=== PATIENT | female | born 1965 ===

== ENCOUNTER 2017-06-06 17:42 | Emergency (ER) | payer BC ==
[2017-06-06 18:02] VITALS: BP 118/77
[2017-06-06] MEDS ORDERED: Benzonatate CAP* 100 MG PO ONE (18:13)
--- NOTE | 2017-06-06 18:20 | UC ---
Respiratory Complaint HPI - HPI Summary HPI Summary: 51 year old female with no significant pmhx here for cough and fever. Patient was recently diagnosed with influenza about 10 days ago. She was given tamiflu for 7 days which she completed. Today, she is here for persistent cough, productive with dark yellow sputum. Reports intermittent fever but no n/v/d/ or any other complaints. Feels chest and nose congestion but no chest pain. Active smoker. - History of Current Complaint Chief Complaint: UCRespiratory Stated Complaint: COUGH,SORE THROAT Time Seen by Provider: 06/06/17 18:02 Onset/Duration: Gradual Onset Severity Initially: Mild Severity Currently: Mild Pain Intensity: 0 Character: Cough: Productive Aggravating Factors: Nothing Alleviating Factors: Nothing Associated Signs And Symptoms: Positive: Nasal Congestion, Hoarseness. Negative : Dyspnea, Pleuritic Chest Pain, Wheezing, Calf Pain - Allergies/Home Medications Allergies/Adverse Reactions: Allergies Allergy/AdvReac Type Severity Reaction Status Date / Time Sulfa (Sulfonamide Allergy Severe Rash Verified 06/06/17 17:54 Antibiotics) PMH/Surg Hx/FS Hx/Imm Hx Previously Healthy: Yes - Surgical History Surgical History: Yes Surgery Procedure, Year, and Place: tubal ligation, back surgery 1999 - Family History Known Family History: Positive: None - Social History Alcohol Use: Occasionally Substance Use Type: None Smoking Status (MU): Light Every Day Tobacco Smoker Review of Systems Constitutional: Fever, Chills ENT: Sinus Congestion, Sinus Pain/Tenderness Respiratory: Cough All Other Systems Reviewed And Are Negative: Yes Physical Exam Triage Information Reviewed: Yes Appearance: Well-Appearing, No Pain Distress, Well-Nourished Vital Signs: Initial Vital Signs Temp 36.8 C 06/06/17 17:57 Pulse 72 06/06/17 17:57 BP 118/77 06/06/17 17:57 Pulse Ox 100 06/06/17 17:57 Eye Exam: Normal ENT: Positive: Nasal congestion. Negative: Tonsillar swelling, Tonsillar exudate, Trismus, Muffled voice Dental Exam: Normal Neck exam: Normal Neck: Positive: Nontender, No Lymphadenopathy Respiratory: Positive: Other: - coarse breath soungs Cardiovascular Exam: Normal Abdominal Exam: Normal Musculoskeletal Exam: Normal Neurological Exam: Normal Psychological Exam: Normal Skin Exam: Normal UC Diagnostic Evaluation - Laboratory O2 Sat by Pulse Oximetry: 100 - Radiology Xray Interpretation: No Acute Changes Radiology Interpretation Completed By: Radiologist Respiratory Course/Dx - Differential Dx/Diagnosis Differential Diagnosis/HQI/PQRI: Bronchitis, Laryngitis, Lower Resp Infection Provider Diagnoses: Bronchitis. Given her smoking history, and xray findings of hyperinflated XR, patient most likely has undiagnosed COPD. Will treate with bronchitis. Discharge - Discharge Plan Condition: Good Disposition: HOME Prescriptions: Azithromyxin MISAEL (NF) [Z-Misael (Zithromax) 250 mg tabs #6] 2 tab PO .TODAY, THEN 1 DAILY #6 tab Benzonatate CAP* [Tessalon 100 MG CAP*] 100 mg PO TID PRN #20 cap PRN Reason: Cough Patient Education Materials: Acute Bronchitis (ED), How to Stop Smoking (ED) Referrals: No Primary Care Phys,NOPCP [Primary Care Provider] - Additional Instructions: You have to stop smoking so your symptoms improve. You need to follow up with your doctor for an evaluation for emphysema/copd.
--- NOTE | 2017-06-06 18:39 | RAD ---
INDICATION: 2 days shortness of breath, central chest pain/tightness and burning. Intermittent fever. History of tobacco use. COMPARISON: No relevant prior exams available on the [facility] for [place]. TECHNIQUE: Dual energy PA and routine lateral views of the chest were obtained. REPORT: Elevated lung volumes and minimal prominence of the interstitial markings. Accounting for superimposed breast tissue the lungs are clear. Negative for pleural effusion or pneumothorax. The heart, pulmonary vasculature, and mediastinal contours are unremarkable. Unremarkable soft tissue contours and osseous structures. IMPRESSION: Elevated lung volumes suggest potential obstructive lung disease. No evidence for pneumonia.
== END 2017-06-06 19:00 | disposition home or self-care (01) ==
LOC: UCEAST 17:42
DX: J40 Bronchitis, not specified as acute or chronic (principal); R09.81 Nasal congestion; Z88.2 Allergy status to sulfonamides; F17.200 Nicotine dependence, unspecified, uncomplicated
CPT/HCPCS: 71046; 99202; A9270-GY; G0463